=== PATIENT | female | born 1960 | race Two or more races ===

== ENCOUNTER 2016-08-24 14:13 | Emergency (ER) | payer OTHER ==
[~2016-08-24] VITALS: Ht 162.6 cm; Wt 66.7 kg
[2016-08-24] MEDS ORDERED: NKM (14:23)
[2016-08-24 14:26] VITALS: BP 129/75
[2016-08-24] MEDS ORDERED: Ketorolac 30mg Inj IV ONE (15:15)
--- NOTE | 2016-08-24 15:24 | Emergency Room Report ---
History of Present Illness General Chief Complaint: Chest Pain Source: Patient Present Illness HPI [id number] walk in with 2 days left side chest pain "under the breast", worse with movement, moving left arm, worse when she pushes on it. No assoc SOB, fever/ chills, URI symptoms. No trauma. No CAD risk factors known although + fam history of DM and ?HLD. Not on any meds. No smoking, drugs, ETOH. No previous heart attack, PE. Also co chronic neck, lower back pain with lately shooting pain to both hands, intermittent numbness and "hands turning blue" then "back to red." Allergies: Coded Allergies: No Known Allergies (Unverified , 08/24/16) Patient History Past Medical History: other - ?neuropathy, chronic neck, back pain Past Surgical History: none Pertinent Family History: DM Social History: Denies: alcohol use, drug use, smoking Last Menstrual Period: menopause Now: No Immunizations: UTD Reviewed Nursing Documentation: PMH: Agreed, PSxH: Agreed Nursing Documentation-PMH Past Medical History: No Stated History Review of Systems All Other Systems: negative except mentioned in HPI Physical Exam Vital Signs Date Time Temp Pulse Resp B/P Pulse Ox O2 Delivery O2 Flow Rate FiO2 08/24/16 14:18 98.2 91 18 126/88 98 Room Air Sp02 EP Interpretation: reviewed, normal General Appearance: normal inspection, well appearing, no apparent distress, alert, GCS 15, non-toxic Head: normocephalic, atraumatic Eyes: bilateral eye EOMI, bilateral eye PERRL ENT: normal ENT inspection, hearing grossly normal, normal voice Neck: normal inspection, full range of motion, supple, no bony tend Respiratory: normal inspection, lungs clear, normal breath sounds, no respiratory distress, no retraction, no wheezing, other - Reproducible pain to left chest. 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 Afebrile. - Reproducible, worse with movement - no known CAD risk factors - Low suspicion for PE, dissection given 2 days duration, no hypoxia, tachypnea , well appearance - Labs: Mild HypoK - repleted. Troponin 0. No leuks. H&H stable. - ECG: No ischemia - CXR: No PTX, CHF, PNA Bilateral hand pain, numbness - likely neuropathy - ?arthritis, cervical? - Started Rx gabapentin in ED - Has close PMD followup EKG Diagnostic Results Rate: normal Rhythm: NSR ST Segments: no acute changes ASA given to the pt in ED: No Rhythm Strip Diag. Results EP Interpretation: yes Rate: 91 Rhythm: NSR, no PVC's, no ectopy Chest X-Ray Diagnostic Results Chest X-Ray Ordered: Yes # of Views/Limited/Complete: 1 View EP Interpretation: Yes Interpretation: no consolidation, no effusion, no pneumothorax, no acute cardiopulmonary disease Indication: Chest Pain Impression: No acute disease Interpreting ER Provider: Linda Last Vital Signs Date Time Temp Pulse Resp B/P Pulse Ox O2 Delivery O2 Flow Rate FiO2 08/24/16 14:26 98.2 90 18 129/75 98 Room Air Status: improved Disposition: HOME, SELF-CARE Scripts Gabapentin* (GABAPENTIN*) 400 Mg Capsule 400 MG ORAL THREE TIMES A DAY for neuropathy for 30 Days, #90 CAP 0 Refills Prov: RORY VALENZUELA M.D. 08/24/16 RORY VALENZUELA M.D. Aug 24, 2016 15:24
[2016-08-24 15:46] LABS: BASOPHILS % (AUTO) 1.1 % (0.0-2.0); LYMPHOCYTES % (AUTO) 36.6 % (20.0-45.0); MEAN CORPUSCULAR HEMOGLOBIN 31.1 PG (27.0-31.0); MEAN CORPUSCULAR HGB CONC 34.3 G/DL (32.0-36.0); MEAN CORPUSCULAR VOLUME 91 FL (80-99); MEAN PLATELET VOLUME 6.7 FL (6.5-10.1); MONOCYTES % (AUTO) 5.7 % (1.0-10.0); NEUTROPHILS % (AUTO) 52.6 % (45.0-75.0); PLATELET COUNT 277 K/UL (150-450); RED BLOOD COUNT 4.43 M/UL (4.20-5.40); RED CELL DISTRIBUTION WIDTH 11.9 % (11.6-14.8); WHITE BLOOD COUNT 7.7 K/UL (4.8-10.8)
[2016-08-24 15:52] LABS: ALANINE AMINOTRANSFERASE 26 U/L (3-33); ALBUMIN/GLOBULIN RATIO 1.2 (1.0-2.7); ANION GAP 15 (5-15); ASPARTATE AMINO TRANSFERASE 25 U/L (5-40); CALCIUM 8.8 mg/dL (8.6-10.2); CARBON DIOXIDE 26 mEQ/L (20-30); CHLORIDE 101 mEQ/L (98-107); CREATININE 0.6 mg/dL (0.5-0.9); GLOMERULAR FILTRATION RATE > 60 mL/min (>60); HEMOLYSIS 7; SODIUM 142 mEQ/L (135-145); TOTAL PROTEIN 7.5 g/dL (6.6-8.7); TROPONIN I < 0.30 ng/mL (<=0.30)
[2016-08-24] MEDS ORDERED: KCl 10% 20 mEq/15ml liquid ORAL ONE (16:00)
[2016-08-24 16:03] LABS: CKMB < 1.5 ng/mL (< 3.8)
[2016-08-24] MEDS ORDERED: GABAPENTIN400 MG ORAL (16:03)
[2016-08-24 16:07] VITALS: BP 125/80
[2016-08-24 16:16] VITALS: BP 125/80
--- NOTE | 2016-08-25 10:14 | Diagnostic Imaging Report ---
Indication: PAIN Technique: One view of the chest Comparison: none Findings: Lungs and pleural spaces are clear. Heart size is normal. There is some atelectasis at the left lung base Impression: No acute process Left basilar atelectasis
--- NOTE | 2016-08-25 20:06 | Cardiology Report ---
APPROVED REPORT EKG Measurement Heart [id number] Normal sinus rhythm Indeterminate axis Borderline ECG
== END 2016-08-24 16:17 | disposition home or self-care (01) ==
LOC: EMR 15:47
DX: R07.9 Chest pain, unspecified (principal); G62.9 Polyneuropathy, unspecified; J98.11 Atelectasis; E87.6 Hypokalemia; Z83.3 Family history of diabetes mellitus; G89.29 Other chronic pain
CPT/HCPCS: 36415; 71010; 80053; 82550; 82553; 84484; 85025; 93005; 96374; 99284; J1885